=== PATIENT | female | born 1990 | race Caucasian/White ===

== ENCOUNTER 2021-05-19 05:14 | Emergency (ER) | payer SELFPAY ==
[2021-05-19] MEDS ORDERED: Ondansetron ODT 8 MG TAB ONE (06:00)
[2021-05-19] MEDS ORDERED: cloNIDine 0.1 MG TAB ONE (06:31)
[2021-05-19] MEDS ORDERED: Lisinopril 10 MG TAB ONE ×2 (06:57→06:58)
== END 2021-05-19 07:07 | disposition home or self-care (01) ==
LOC: EDBD → ERS 05:14
DX: I10 Essential (primary) hypertension (principal); R11.2 Nausea with vomiting, unspecified
CPT/HCPCS: 99284; Q0162

== ENCOUNTER 2021-05-19 08:00 | Emergency (ER) | payer SELFPAY ==
[2021-05-19] MEDS ORDERED: Dicyclomine 20 MG TAB ONE (08:46)
[2021-05-19] MEDS ORDERED: Ketorolac Tromethamine 30 MG/ML VIAL ONE (08:46)
[2021-05-19] MEDS ORDERED: Ondansetron PF 4 MG/2 ML Vial ONE (08:46)
[2021-05-19] MEDS ORDERED: Acetaminophen 500 MG TAB ONE (08:46)
[2021-05-19 09:00] LABS: #Monocytes 0.5 thou/uL (0.11-0.59); #Neutrophils 2.2 thou/uL (1.40-6.50); %Basophils 0.5 % (0.0-1.0); %Eosinophils 0.9 % (0.0-10.0); %Lymphocytes 41.8 % (21.0-51.0); %Neutrophils 46.7 % (42.0-75.0); Mean Corpuscular HGB CONC 35.3 g/dL (32.0-36.0); Mean Corpuscular Hemoglobin 28.8 pg (27.0-31.0); Mean Corpuscular Volume 81.4 fL (78.0-98.0); Mean Platelet Volume 6.5 fL (7.4-10.4); Platelet Count 251 thou/uL (130-400); RBC Distribution Width 11.8 % (11.5-14.5); Red Blood Cell (RBC) Count 5.21 mill/uL (4.20-5.40); White Blood Cell (WBC) Count 4.7 thou/uL (4.8-10.8)
[2021-05-19 09:18] LABS: ALT (SGPT) 131 U/L (8-55); AST (SGOT) 71 U/L (5-34); Albumin 4.2 g/dL (3.5-5.0); Alkaline Phosphatase 114 U/L (40-110); Anion Gap 20 mmol/L (10-20); BUN (Urea Nitrogen) 11 mg/dL (7.0-18.7); Bilirubin, Total 0.6 mg/dL (0.2-1.2); Calc. Creatinine Clearance 0 mL/min (70-130); Calcium 8.9 mg/dL (7.8-10.44); Carbon Dioxide 16 mmol/L (22-29); Chloride 107 mmol/L (98-107); Globulin 2.8 g/dL (2.4-3.5); Glucose 117 mg/dL (70-105); Magnesium 1.8 mg/dL (1.6-2.6); Potassium 3.4 mmol/L (3.5-5.1); Sodium 140 mmol/L (136-145)
== END 2021-05-19 11:25 | disposition home or self-care (01) ==
LOC: ERS 08:00 → EDBD 08:00 → ERS 11:25
DX: U07.1 COVID-19 (principal); E86.0 Dehydration; I10 Essential (primary) hypertension
CPT/HCPCS: 36415; 80053; 83735; 85025; 96374; 96375; J1885; J2405